=== PATIENT | male | born 1950 | race Caucasian/White ===

== ENCOUNTER → 2016-12-03 | Outpatient (CLI) | payer BC ==
[~2016-12-03] MED LIST: ALDACTONE 100M100 MG PO; CANA100T PO; CEPHALEXIN500 M1 PO; GLUCOPHAGE500 MG/TAB PO; INDERAL 20MG20 MG PO; LASIX 40MG TABL40 MG PO; LORTAB 7.5/5001 TAB PO; ULTRAM 50MG TAB50 MG PO; ZESTRIL 10MG10 MG PO; ZOCOR 20MG20 MG PO; ZOLOFT 50MG50 MG PO
== END ==
LOC: COL.RAD 09:48
DX: K76.89 Other specified diseases of liver (principal); I85.10 Secondary esophageal varices without bleeding; R74.8 Abnormal levels of other serum enzymes

== ENCOUNTER → 2017-06-29 | Outpatient (CLI) | payer MEDICARE | LOC: COL.RAD 09:39 | DX: R74.8 Abnormal levels of other serum enzymes (principal); R18.8 Other ascites; K74.60 Unspecified cirrhosis of liver ==

== ENCOUNTER → 2017-12-07 | Outpatient (CLI) | payer MEDICARE, BC | LOC: COL.RAD 09:20 | DX: R74.8 Abnormal levels of other serum enzymes (principal); R18.8 Other ascites; K74.60 Unspecified cirrhosis of liver ==

== ENCOUNTER → 2018-03-08 | Outpatient (CLI) | payer MEDICARE, BC | LOC: COL.RAD 08:06 | DX: Z13.6 Encounter for screening for cardiovascular disorders (principal); Z87.891 Personal history of nicotine dependence ==

== ENCOUNTER → 2018-06-02 | Outpatient (CLI) | payer MEDICARE, BC | LOC: COL.RAD 12:44 | DX: K74.60 Unspecified cirrhosis of liver (principal); K82.8 Other specified diseases of gallbladder ==

== ENCOUNTER → 2018-12-02 | Outpatient (CLI) | payer MEDICARE, BC | LOC: COL.RAD 08:50 | DX: K74.60 Unspecified cirrhosis of liver (principal); I85.00 Esophageal varices without bleeding ==

== ENCOUNTER → 2019-06-05 | Outpatient (CLI) | payer MEDICARE, BC | LOC: COL.RAD 10:37 | DX: K74.60 Unspecified cirrhosis of liver (principal); I85.00 Esophageal varices without bleeding ==

== ENCOUNTER → 2019-11-29 | Outpatient (CLI) | payer MEDICARE, BC | LOC: COL.RAD 10:24 | DX: I85.00 Esophageal varices without bleeding (principal); K74.60 Unspecified cirrhosis of liver ==

== ENCOUNTER → 2020-05-30 | Outpatient (CLI) | payer MEDICARE, BC | LOC: COL.RAD 05-29 12:00 | DX: K74.60 Unspecified cirrhosis of liver (principal) ==

== ENCOUNTER → 2020-12-06 | Outpatient (CLI) | payer MEDICARE, BC | LOC: COL.RAD 07:35 | DX: K70.30 Alcoholic cirrhosis of liver without ascites (principal) ==

== ENCOUNTER → 2021-06-02 | Outpatient (CLI) | payer MEDICARE, BC | LOC: COL.RAD 08:45 | DX: K74.60 Unspecified cirrhosis of liver (principal); I85.10 Secondary esophageal varices without bleeding ==

== ENCOUNTER → 2021-11-21 | Outpatient (CLI) | payer MEDICARE, BC | LOC: COL.RAD 06:55 | DX: K70.31 Alcoholic cirrhosis of liver with ascites (principal); I85.10 Secondary esophageal varices without bleeding ==

== ENCOUNTER → 2023-05-24 | Outpatient (CLI) | payer MEDICARE, BC | LOC: CANSCHCLI → COL.RAD 06:59 | DX: K76.89 Other specified diseases of liver (principal); K74.60 Unspecified cirrhosis of liver ==